=== PATIENT | female | born 2000 | race Caucasian/White ===

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

== ENCOUNTER 2020-06-04 10:08 | Emergency (ER) | payer OTHER ==
[~2020-06-04] VITALS: Ht 152.4 cm; Wt 68.0 kg
[2020-06-04] MEDS ORDERED: NORETHIND-ETH1 EAC1 PO (10:47)
[2020-06-04] MEDS ORDERED: PREDNISONE20 MG PO (11:21)
== END 2020-06-04 11:31 | disposition home or self-care (01) ==
LOC: ED 10:08
DX: M54.42 Lumbago with sciatica, left side (principal); Z87.891 Personal history of nicotine dependence; Z79.899 Other long term (current) drug therapy
CPT/HCPCS: 99283

== ENCOUNTER 2020-08-31 09:20 | Emergency (ER) | payer OTHER ==
[~2020-08-31] VITALS: Ht 154.9 cm; Wt 47.6 kg
[~2020-08-31 09:20] MED LIST changes: +CYCLOBENZAPRINE5 MG PO; +HYDROCODON-ACE1 EA10 PO; +IBU400 MG PO; +NORETHIND-ETH1 EAC1 PO; +PREDNISONE20 MG PO
--- OUTSIDE RECORDS SUMMARY | 2020-08-31 09:26 | XMS ---
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 Darlene has no Care Guidelines for this patient. Saulo VISIT COUNT (12 MO.) 3 [facility] TOTAL 3 NOTE: Visits indicate total known visits. 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 - Lumbago with sciatica, left side - Low back pain - Personal history of nicotine dependence INPATIENT VISIT TRACKING (12 MO.) 06/17/2020 15:17 [facility] TYPE: Observation COMPLAINT: - APPENDICITIS DIAGNOSES: - Bee allergy status - Unspecified acute appendicitis 11/17/2019 12:03 [facility] TYPE: [facility] COMPLAINT: - LABOR DIAGNOSES: - Labor and delivery complicated by cord around neck, with compression, not applicable or unspecified - Anemia, unspecified - Other residential (current) drug therapy - Streptococcus B carrier state complicating childbirth - Second degree perineal laceration during delivery - Single live - Anemia complicating childbirth - Personal history of other infectious and parasitic diseases - 40 weeks gestation of - Abnormality in heart rate and rhythm complicating labor and delivery - Streptococcus B carrier state complicating [email or web address]
== END 2020-08-31 10:49 | disposition home or self-care (01) ==
LOC: ED 09:20
DX: S60.222A Contusion of left hand, initial encounter (principal); W01.10XA Fall on same level from slipping, tripping and stumbling with subsequent striking against unspecified object, initial encounter; Z91.030 Bee allergy status
CPT/HCPCS: 73130; 99283-25

== ENCOUNTER 2021-03-22 17:20 | Emergency (ER) | payer OTHER ==
[~2021-03-22] VITALS: Ht 152.4 cm; Wt 47.2 kg
--- OUTSIDE RECORDS SUMMARY | 2021-03-22 17:22 | XMS ---
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 Darlene has no Care Guidelines for this patient. Saulo VISIT COUNT (12 MO.) 4 [facility] TOTAL 4 NOTE: Visits indicate total known visits. 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
== END 2021-03-22 22:47 | disposition home or self-care (01) ==
LOC: ED 17:20
DX: R10.12 Left upper quadrant pain (principal); Z91.030 Bee allergy status
CPT/HCPCS: 71046; 74177; 80053; 81001; 83690; 84703; 85025; 85379; 99284-25; Q9967

== ENCOUNTER 2021-05-15 13:06 | Emergency (ER) | payer OTHER ==
[~2021-05-15] VITALS: Ht 152.4 cm; Wt 47.2 kg
--- OUTSIDE RECORDS SUMMARY | 2021-05-15 13:08 | XMS ---
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 Darlene has no Care Guidelines for this patient. Care History Medical/Surgical 03/24/2021 [facility] CALLED PATIENT- LEFT A VOICEMAIL-PATIENT DOES NOT HAVE A PCP LISTED. - NO PCP LETTER SENT WITH THE CLINICS LIST. E.D. VISIT COUNT (12 MO.) 5 [facility] TOTAL 5 NOTE: Visits indicate total known visits. ED/C VISIT TRACKING (12 MO.) 05/15/2021 13:06 [facility] COMPLAINT: - DIZZINESS 03/22/2021 17:21 [facility] TYPE: Emergency COMPLAINT: - LT SIDED ABDOMINAL PAIN DIAGNOSES: - Bee allergy status - Left upper quadrant pain 08/31/2020 09:21 [facility] [place] TYPE: Emergency COMPLAINT: - LEFT HAND INJURY DIAGNOSES: - Bee allergy status - Contusion of left hand, initial encounter - Pain in left hand - Fall on same level from slipping, tripping and stumbling with subsequent striking against unspecified object, initial encounter 06/17/2020 15:16 [facility] [place] TYPE: Emergency COMPLAINT: - R SIDE ABDOMINAL PAIN 06/04/2020 10:08 [facility] TYPE: Emergency COMPLAINT: - LT LEG/HIP PAIN DIAGNOSES: - Other senior living (current) drug therapy - Lumbago with sciatica, left side - Low back pain - Personal history of nicotine dependence INPATIENT VISIT TRACKING (12 MO.) 06/17/2020 15:17 [facility] TYPE: Observation COMPLAINT: - APPENDICITIS DIAGNOSES: - Bee allergy status - Unspecified acute appendicitis [email or web address]
--- NOTE | 2021-05-15 17:44 | EKG ---
[facility] [address] [facility] [place], [place] [address] Signed Normal sinus rhythm with sinus arrhythmia Normal ECG No previous ECGs available Confirmed by ELISEO GRIER DO ([id number]) on 05/15/2021 5:44:01 PM Electronically Signed By: ELISEO GRIER DO 05/15/21 1744 PATIENT NAME: AXEL LEBLANC Electrocardiogram DATE OF : 00 PHYSICIAN: ELISEO GRIER DO REPORT #: [id number] REPORT IS CONFIDENTIAL AND NOT TO BE RELEASED WITHOUT AUTHORIZATION
== END 2021-05-15 16:50 | disposition home or self-care (01) ==
LOC: ED 13:06
DX: R55 Syncope and collapse (principal); Z91.030 Bee allergy status
CPT/HCPCS: 36415; 80048; 81001; 84703; 85025; 93005; 93010; 99284-25

== ENCOUNTER 2022-01-19 15:13 | Emergency (ER) | payer OTHER ==
[~2022-01-19] VITALS: Ht 152.4 cm; Wt 58.9 kg
--- OUTSIDE RECORDS SUMMARY | 2022-01-19 15:20 | XMS ---
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 Darlene has no Care Guidelines for this patient. Care History Medical/Surgical 03/24/2021 [facility] - [facility] CALLED PATIENT- LEFT A VOICEMAIL-PATIENT DOES NOT HAVE A PCP LISTED. - NO PCP LETTER SENT WITH THE CLINICS LIST. E.D. VISIT COUNT (12 MO.) 3 [facility] TOTAL 3 NOTE: Visits indicate total known visits. ED/C VISIT TRACKING (12 MO.) 01/19/2022 15:14 [facility] TYPE: Emergency COMPLAINT: - DIFFICULTY BREATHING 05/15/2021 13:06 [facility] TYPE: Emergency COMPLAINT: - DIZZINESS DIAGNOSES: - Bee allergy status - Syncope and collapse 03/22/2021 17:21 [facility] TYPE: Emergency COMPLAINT: - LT SIDED ABDOMINAL PAIN DIAGNOSES: - Bee allergy status - Left upper quadrant pain INPATIENT VISIT TRACKING (12 MO.) No inpatient visits to display in this time frame [email or web address]
[2022-01-19] MEDS ORDERED: PRENATAL MULTI1 EAC3 PO (15:27)
--- NOTE | 2022-01-20 15:20 | EKG ---
[facility] [address] [facility] [place] [address] Signed Normal sinus rhythm with sinus arrhythmia Normal ECG When compared with ECG of 15-MAY-2021 15:28, No significant change was found Confirmed by DANIEL GREER MD ([id number]) on 01/20/2022 3:20:27 PM Electronically Signed By: DAINEL GREER MD 01/20/22 1520 PATIENT NAME: AXEL LEBLANC Electrocardiogram DATE OF : 00 PHYSICIAN: DANIEL GREER MD REPORT #: [id number] REPORT IS CONFIDENTIAL AND NOT TO BE RELEASED WITHOUT AUTHORIZATION
== END 2022-01-19 18:00 | disposition home or self-care (01) ==
LOC: ED 15:13
DX: R06.02 Shortness of breath (principal); Z20.822 Contact with and (suspected) exposure to COVID-19; Z91.030 Bee allergy status
CPT/HCPCS: 36415; 71045; 71260; 80053; 83880; 84484; 85025; 85379; 87502; 93005; 93010; 99285-25; C9803; J7030; Q9967; U0003

== ENCOUNTER 2022-03-04 12:15 | Emergency (ER) | payer OTHER ==
[~2022-03-04] VITALS: Ht 152.4 cm; Wt 64.6 kg
[~2022-03-04 12:15] MED LIST changes: +PRENATAL MULTI1 EAC3 PO
--- OUTSIDE RECORDS SUMMARY | 2022-03-04 12:23 | XMS ---
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 Darlene has no Care Guidelines for this patient. Care History Medical/Surgical 03/24/2021 [facility] - [facility] CALLED PATIENT- LEFT A VOICEMAIL-PATIENT DOES NOT HAVE A PCP LISTED. - NO PCP LETTER SENT WITH THE CLINICS LIST. E.D. VISIT COUNT (12 MO.) 4 [facility] TOTAL 4 NOTE: Visits indicate total known visits. ED/C VISIT TRACKING (12 MO.) 03/04/2022 12:15 [facility] [place] TYPE: Emergency COMPLAINT: - SORE THROAT, HARD TO BREATHE 01/19/2022 15:[address] [facility] [place] TYPE: Emergency COMPLAINT: - DIFFICULTY BREATHING DIAGNOSES: - Shortness of breath - Bee allergy status - Contact with and (suspected) exposure to COVID-19 05/15/2021 13:[address] [facility] [place] TYPE: Emergency COMPLAINT: - DIZZINESS DIAGNOSES: - Syncope and collapse - Bee allergy status 03/22/2021 17:[address] [facility] [place] TYPE: Emergency COMPLAINT: - LT SIDED ABDOMINAL PAIN DIAGNOSES: - Left upper quadrant pain - Bee allergy status INPATIENT VISIT TRACKING (12 MO.) No inpatient visits to display in this time frame [email or web address]
[2022-03-04] MEDS ORDERED: ONDANSETRON ODT4 MG PO (13:34)
[2022-03-04] MEDS ORDERED: IRON325 M1 PO (13:34)
[2022-03-04] MEDS ORDERED: TAMIFLU75 MG PO (14:48)
== END 2022-03-04 15:05 | disposition home or self-care (01) ==
LOC: ED 12:15
DX: J10.1 Influenza due to other identified influenza virus with other respiratory manifestations (principal); Z91.030 Bee allergy status; Z79.899 Other long term (current) drug therapy; Z20.822 Contact with and (suspected) exposure to COVID-19
CPT/HCPCS: 87502; 99283; J7121; U0003

== ENCOUNTER 2022-05-08 08:09 | Inpatient (IN) | payer OTHER ==
[~2022-05-08] VITALS: Ht 152.4 cm; Wt 70.3 kg
[~2022-05-08 08:09] MED LIST changes: +IRON325 M1 PO; +ONDANSETRON ODT4 MG PO; +TAMIFLU75 MG PO
--- NOTE | 2022-05-08 08:20 | NUR ---
RT COLLECTED RAPID COVID 19 SWAB AT THIS TIME.
--- NOTE | 2022-05-08 20:47 | PR ---
[facility] [address] [place], [place] [address] Signed Progress Notes IP Datetime Report Generated by CPCésar: 05/08/2022 20:47 PROGRESS NOTES: [id number] Impression: Arrest of Dilatation/Descent; Reassuring Heart Rate Other Procedures: Cook balloon placement Plan: Cervical Ripening Informed Consent Obtain: Vaginal Delivery VITAL SIGNS: [id number] Vital Signs: Reviewed EXAM: [id number] Dilatation: 3.0 Effacement: 80 Station: -3 Contractions: every 3-5 MEMBRANES: [id number] Pooling: Positive Nitrazine: Positive Amniotic Fluid Color: Clear ROM Note: amnisure collected and sent to lab Comments: S: Patient well. Lying in bed. Uncomfortable from labor. Epidural in place. O: AFVSS SVE: 3/80/-3 FHT: CAT I, toco q 2-3 min A/P: Patient well. IUPC previously placed at 1700 hrs. MVUs appear to be adequate. Cook balloon placed with 80 cc normal saline in each reservoir. Patient to sit in modificed high fowlers position with legs in frog legged position. Continue with pitocin augmentation. Recheck in 2 hours and sooner as needed. FETUS A: [id number] FHR Baseline: 125 Variability: Moderate 6-25bpm Accelerations: 15X15 Decelerations: None Presentation: Vertex FETUS B: [id number] Signing Physician: Rafaela Martin MD *Electronically Signed* 05/08/222046 RAFAELA MARTIN MD PATIENT NAME: AXEL LEBLANC PROGRESS NOTE DATE OF : 00 PHYSICIAN: RAFAELA MARTIN MD RPT #: [id number] REPORT IS CONFIDENTIAL AND NOT TO BE RELEASED WITHOUT AUTHORIZATION [address] [address] Signed Copies: ~ *Electronically Signed* 05/08/222046 RAFAELA MARTIN MD PATIENT NAME: AXEL LEBLANC PROGRESS NOTE DATE OF : 00 PHYSICIAN: RAFAELA MARTIN MD RPT #: [id number] REPORT IS CONFIDENTIAL AND NOT TO BE RELEASED WITHOUT AUTHORIZATION
--- NOTE | 2022-05-08 23:18 | PR ---
[facility] [address] [place], [place] [address] Signed Progress Notes IP Datetime Report Generated by CPN: 05/08/2022 23:18 PROGRESS NOTES: [id number] Impression: Normal Progression of Labor; Reassuring Heart Rate Procedures: Sterile Vag Exam Other Procedures: Cook balloon placement Plan: Continue Present Management Informed Consent Obtain: Vaginal Delivery VITAL SIGNS: [id number] Vital Signs: Reviewed EXAM: [id number] Dilatation: 3.0 Effacement: 80 Station: -3 Contractions: every 3-5 MEMBRANES: [id number] Pooling: Positive Nitrazine: Positive Amniotic Fluid Color: Clear ROM Note: amnisure collected and sent to lab Comments: S: Patient doing well. Resting comfortably in bed. O: AFVSS SVE: 7/80/-3 FHT: CAT I A/P: Patient well. Continue pitocin augmentation. Will work on changing maternal positions every 30 minutes in hopes of aiding in descent. Will recheck in 2 -3 hours and sooner as needed. Concern for possible mal presentation. Will continue to monitor. FETUS A: [id number] FHR Baseline: 125 Variability: Moderate 6-25bpm Accelerations: 15X15 Decelerations: None Presentation: Vertex FETUS B: [id number] Signing Physician: Rafaela Martin MD *Electronically Signed* 05/08/22 7932 RAFAELA MARTIN MD PATIENT NAME: AXEL LEBLANC PROGRESS NOTE DATE OF : 00 PHYSICIAN: RAFAELA MARTIN MD RPT #: [id number] REPORT IS CONFIDENTIAL AND NOT TO BE RELEASED WITHOUT AUTHORIZATION [address], [place] [address] Signed Copies: ~ *Electronically Signed* 05/08/22 2318 RAFAELA MARTIN MD PATIENT NAME: AXEL LEBLANC PROGRESS NOTE DATE OF : 00 PHYSICIAN: RAFAELA MARTIN MD RPT #: [id number] REPORT IS CONFIDENTIAL AND NOT TO BE RELEASED WITHOUT AUTHORIZATION
--- NOTE | 2022-05-09 01:14 | PR ---
[facility] [address] [place], [place] [address] Signed Progress Notes IP Datetime Report Generated by HUMA: 05/09/2022 01:14 PROGRESS NOTES: [id number] Impression: Arrest of Dilatation/Descent; Reassuring Heart Rate Procedures: Sterile Vag Exam Other Procedures: Cook balloon placement Plan: Continue Present Management Informed Consent Obtain: Vaginal Delivery VITAL SIGNS: [id number] Vital Signs: Reviewed EXAM: [id number] Dilatation: 7.0 Effacement: 80 Station: -1 Contractions: every 3-5 MEMBRANES: [id number] Pooling: Positive Nitrazine: Positive Amniotic Fluid Color: Clear ROM Note: amnisure collected and sent to lab Comments: S: Patient resting comfortably in bed. No complaints. O: AFVSS SVE: 7/80/-1 FHT: CAT I A/P: Patient well. With pushing, able to bring baby down to a -1 station. Will sit back in high fowelers to see if this will keep head engaged. Recheck in 2 hours and sooner as needed. FETUS A: [id number] FHR Baseline: 125 Variability: Moderate 6-25bpm Accelerations: 15X15 Decelerations: None Presentation: Vertex FETUS B: [id number] Signing Physician: Rafaela Martin MD *Electronically Signed* 05/09/22 0114 RAFAELA MARTIN MD PATIENT NAME: AXEL LEBLANC PROGRESS NOTE DATE OF : 00 PHYSICIAN: RAFAELA MARTIN MD RPT #: [id number] REPORT IS CONFIDENTIAL AND NOT TO BE RELEASED WITHOUT AUTHORIZATION
--- NOTE | 2022-05-10 07:30 | PR ---
[facility] [address] [facility] [place], [place] [address] Signed PP Progress Notes Datetime Report Generated by CPN: 05/10/2022 07:30 SUBJECTIVE: [id number] Pain: Within Normal Limits Nausea/Vomiting: Denies Flatus: Yes Bowel Movement: No Vital Signs: L6346450 Vital Signs: Reviewed; Within Normal Limits EXAM: Ongoing Abdomen/Uterus: Normal Lochia: Normal Extremities: Normal Progress: Normal Exam Comments: Fundus firm, below umbilicus, nontender to palpation. IMPRESSION/PLAN/PROCEDURES: [id number] Impression: Normal Progression Plan: Discharge Procedures: None Progress Notes: S: Patient doing well. No concerns or complaints. Denies WARD, CP, SOB, F/C, N/V, vaginal discharge. Vaginal bleeding WNL. Tolerating diet, ambulating, voiding on her own, pain controlled. O: see above. A/P: Patient well. Meeting hospital milestones. Will discharge home today. Signing Physician: Edwin Martin MD Copies: ~ *Electronically Signed* 05/10/22 41 EDWIN MARTIN MD PATIENT NAME: AXEL LEBLANC [place] PROGRESS NOTE DATE OF : 00 PHYSICIAN: EDWIN MARTIN MD RPT #: [id number] REPORT IS CONFIDENTIAL AND NOT TO BE RELEASED WITHOUT AUTHORIZATION
== END 2022-05-10 10:14 | disposition home or self-care (01) | DRG 806 ==
LOC: FBCO 08:09 → FBC 08:20
PROVIDERS: ADMIT Obstetrics & Gynecology; ATTEND Obstetrics & Gynecology
PROC: 10H07YZ Insertion of Other Device into Products of Conception, Via Natural or Artificial Opening (ICD-10-PCS; principal; 2022-05-09)
PROC: 10E0XZZ Delivery of Products of Conception, External Approach (ICD-10-PCS; 2022-05-09)
DX: O62.1 Secondary uterine inertia (principal); O98.52 Other viral diseases complicating childbirth; Z37.0 Single live birth; O99.324 Drug use complicating childbirth; F12.90 Cannabis use, unspecified, uncomplicated; Z20.822 Contact with and (suspected) exposure to COVID-19; Z67.40 Type O blood, Rh positive; Z3A.39 39 weeks gestation of pregnancy; O99.334 Smoking (tobacco) complicating childbirth; F17.210 Nicotine dependence, cigarettes, uncomplicated; O99.02 Anemia complicating childbirth; D64.9 Anemia, unspecified; B00.9 Herpesviral infection, unspecified; O99.344 Other mental disorders complicating childbirth; F41.9 Anxiety disorder, unspecified; F32.A Depression, unspecified
CPT/HCPCS: 01960; 36415; 85027; 85060; 86850; 86900; 86901; 87502; A9270; C9803; J2405; J2590; J7121; U0003